=== PATIENT | female | born 1965 | race Hispanic/Latino ===

== ENCOUNTER 2018-04-15 08:32 | Inpatient (IN) | payer BC, OTHER ==
[2018-04-15] VITALS (7 sets, daily range): BP systolic 118–144; BP diastolic 61–72
[~2018-04-15] VITALS: Ht 154.9 cm; Wt 87.1 kg
[~2018-04-15 08:32] MED LIST: HYDROCHLOROTHIA25 MG PO
[2018-04-15] MEDS ORDERED: KETOROLAC TROMETHAMINE 30 MG/ML VIAL IV STA (08:44)
[2018-04-15] MEDS ORDERED: DICYCLOMINE HCL 20 MG/2 ML VIAL IM ONE (08:45)
[2018-04-15] MEDS ORDERED: SODIUM CHLORIDE 0.9% 1000ML 1,000 ML IV ONE (08:45)
[2018-04-15 09:26] LABS: BASOPHILS % 0.5 % (0.0-1.0); EOSINOPHILS # (AUTO) 0.2 (0.0-0.4); EOSINOPHILS % 2.8 % (0.0-6.0); HEMATOCRIT 35.2 % (34.2-44.1); HEMOGLOBIN 11.7 g/dL (12.0-16.0); LYMPHOCYTES # (AUTO) 2.4 (1.0-3.2); MEAN CORPUSCULAR HEMOGLOBIN 29.3 pg (28-32); MEAN CORPUSCULAR HGB CONC 33.2 g/dL (31-35); MONOCYTES # (AUTO) 0.3 (0.2-0.8); MONOCYTES % 4.7 % (4.4-11.3); NEUTROPHILS # (AUTO) 3.6 (2.1-6.9); NEUTROPHILS % 55.7 % (38.7-80.0); PLATELET COUNT 220 x10e3/uL (140-360); RED CELL DISTRIBUTION WIDTH 14.1 % (11.7-14.4)
[2018-04-15 09:38] LABS: INR 1.15; PROTHROMBIN TIME 13.8 seconds (11.9-14.5)
[2018-04-15 09:39] LABS: PARTIAL THROMBOPLASTIN TIME 25.7 seconds (23.8-35.5)
[2018-04-15 09:47] LABS: ALANINE AMINOTRANSFERASE 15 IU/L (0-55); ALBUMIN 3.6 g/dL (3.5-5.0); ALBUMIN/GLOBULIN RATIO 1.1 (0.8-2.0); ALKALINE PHOSPHATASE 73 IU/L (40-150); ANION GAP 10.5 mmol/L (8-16); BLOOD UREA NITROGEN 11 mg/dL (7-26); BUN/CREATININE RATIO 16 (6-25); CALCIUM 9.1 mg/dL (8.4-10.2); CARBON DIOXIDE 23 mmol/L (22-29); CHLORIDE 109 mmol/L (98-107); CREATININE, SERUM 0.67 mg/dL (0.57-1.11); EST GLOMERULAR FILTRATION RATE > 60 ML/MIN (60-); GLUCOSE 96 mg/dL (74-118); POTASSIUM 3.5 mmol/L (3.5-5.1); SODIUM 139 mmol/L (136-145)
[2018-04-15] MEDS ORDERED: ONDANSETRON HCL INJ 2 MG/ML VIAL IV PRN (10:30)
[2018-04-15] MEDS ORDERED: SODIUM CHLORIDE 0.9% 250ML 250 ML IV ONE (10:45)
[2018-04-15 11:07] LABS: HEMATOCRIT 33.1 % (34.2-44.1); HEMOGLOBIN 10.9 g/dL (12.0-16.0)
[2018-04-15] MEDS: SODIUM CHLORIDE 0.9% 1000ML 1,000 ML IV SCH ×2 (12:00→15:48)
--- NOTE | 2018-04-15 12:32 | History and Physical ---
HISTORY OF PRESENT ILLNESS: The patient is a 52-year-old 4, para 4, who presents with history of abnormal uterine bleeding. The patient had been receiving outpatient management with both Provera as well as oral contraceptives without any decrease in her bleeding. She is status post a dilatation and curettage and polypectomy earlier this year, which had resolved her bleeding; however, she began having bleeding again about 2 to 3 weeks ago, which initially was light spotting and gradually became moderate. Bleeding became severe starting yesterday. Patient was passing large blood clots and soaking through a pad every hour. This morning, she felt weak and dizzy and presented to the emergency room. PAST SURGICAL HISTORY: Includes 3 sections as well as an umbilical hernia repair with her third section. The patient has also had a breast lumpectomy for a benign lesion. PAST MEDICAL HISTORY: Includes hypertension and hyperlipidemia. CURRENT MEDICATIONS: Includes a combo of losartan and hydrochlorothiazide as well as simvastatin and oral contraceptives. ALLERGIES: NO KNOWN DRUG ALLERGIES. SOCIAL HISTORY: Smoking, none. Alcohol, minimal. REVIEW OF SYMPTOMS CHOKE REAMER: The patient reports dizziness. No blurry vision. No syncope. CARDIAC: Patient reports palpitations. No chest pain. RESPIRATORY: Within normal limits. ENDOCRINE: Within normal limits. SKIN: Within normal limits. GI: Liver within normal limits. Kidney within normal limits. Endorses bloating and abdominal cramping. Denies nausea, vomiting, diarrhea. : As per HPI. PHYSICAL EXAMINATION VITAL SIGNS: As per electronic medical record. GENERAL: She is alert and oriented, in mild amount of distress. HEENT: Normocephalic, atraumatic. HEART: Normal rhythm. No murmur or gallop. LUNGS: Clear to auscultation. ABDOMEN: Mild diffuse tenderness to palpation. No rebound or guarding. Normal bowel sounds in all quadrants. PELVIC: Sterile speculum exam reveals a significant amount of blood within the vaginal vault as well as a soaked pad beneath the patient, one large clot passed upon introducing speculum into vagina. After swabbing multiple times with 4 x 4 pads, the patient was noted to have severe amount of bleeding coming from her cervix. Bimanual exam was performed, which showed a closed cervical os and an enlarged uterus approximately 12 weeks to 14 weeks in size, which appears fixed to the anterior abdominal wall secondary to prior scars, poor mobility. EXTREMITIES: No edema, no erythema. NEUROLOGICAL: Awake and oriented x3. LABS STUDIES: As per patient's electronic medical record. ASSESSMENT: The patient is a 52-year-old 4, para 4, with uncontrolled abnormal uterine bleeding, status post medical management as well as minimally-invasive surgical management. PLAN: Admit to inpatient. Repeat CBC. Continue IV hydration. Consent for blood transfusion. Discussed with patient further treatment alternatives including the risks, benefits, and treatment alternatives to at total abdominal hysterectomy with bilateral salpingo-oophorectomy, and the patient understands and is willing to proceed with surgery. Will bring to operating room for the above-mentioned procedure. Job#: [id number] UVALDO
[2018-04-15] MEDS ORDERED: MIDAZOLAM HCL 2 MG/2 ML VIAL ONE (12:35)
[2018-04-15] MEDS ORDERED: FENTANYL CITRATE/PF 100MCG/2 ML INJ ONE ×2 (12:35→19:21)
[2018-04-15] MEDS ORDERED: LOSARTAN-HCTZ (12:50)
[2018-04-15] MEDS ORDERED: CITALOPRAM HBR20 MG PO (12:50)
[2018-04-15] MEDS ORDERED: ROCURONIUM BROMIDE 10 MG/ML 5ML VIAL ONE (14:23)
[2018-04-15] MEDS ORDERED: LIDOCAINE HCL 2% LOCAL INJ 5 ML SDV VIAL INJ ONE (14:23)
[2018-04-15] MEDS ORDERED: DEXAMETHASONE SOD PHOS INJ 4 MG/ML VIAL ONE (14:23)
[2018-04-15] MEDS ORDERED: SEVOFLURANE INHAL SOLN 250 ML PEN BTL ONE (14:23)
[2018-04-15] MEDS ORDERED: PROPOFOL IV EMULSION 10 MG/ML 20 ML VIAL ONE (14:23)
[2018-04-15] MEDS ORDERED: ATROPINE SULFATE 1 MG/ML VIAL ONE (14:23)
[2018-04-15] MEDS ORDERED: NEOSTIGMINE 5 MG/5ML SYR ONE (14:23)
[2018-04-15] MEDS ORDERED: KETOROLAC TROMETHAMINE 30 MG/ML VIAL ONE (14:23)
[2018-04-15] MEDS ORDERED: ONDANSETRON HCL INJ 2 MG/ML VIAL ONE (14:23)
[2018-04-15 16:46] LABS: HEMATOCRIT 31.4 % (34.2-44.1); HEMOGLOBIN 10.4 g/dL (12.0-16.0)
[2018-04-15] MEDS ORDERED: DEXTROSE IV ONE (17:03)
[2018-04-15] MEDS ORDERED: CEFAZOLIN IV ONE (17:03)
[2018-04-15] MEDS ORDERED: ACETAMINOPHEN 325 MG TAB PO PRN (17:15)
[2018-04-15] MEDS ORDERED: DIPHENHYDRAMINE HCL 25 MG CAP PO PRN (17:15)
[2018-04-15] MEDS ORDERED: SIMETHICONE 80 MG CHEW PO PRN (17:15)
[2018-04-15] MEDS ORDERED: HYDROMORPHONE 2MG/ML 2 MG/ML ML ONE (19:37)
[2018-04-15] MEDS: KETOROLAC TROMETHAMINE 30 MG/ML VIAL IM PRN ×2 (20:35→22:02)
[2018-04-15] MEDS: LACTATED RINGER'S 1,000 ML IV SCH (20:43)
[2018-04-15] MEDS ORDERED: ZOLPIDEM TARTRATE 5 MG TAB PO PRN (21:00)
[2018-04-15] MEDS ORDERED: CEFAZOLIN SOD 1 GM/D5W 50ML 50 ML IV SCH (22:00)
[2018-04-15] MEDS: ESTRADIOL 0.1MG PATCH (ONCE WEEKLY) TOP SCH (22:01)
[2018-04-15] MEDS: SIMVASTATIN 20 MG TAB PO SCH (22:01)
[2018-04-15] MEDS: CEFAZOLIN SOD 1 GM VIAL IV SCH (22:02)
[2018-04-15] MEDS: HYDROMORPHONE 1MG/1ML INJ IV PRN (22:27)
[2018-04-16] VITALS (8 sets, daily range): BP systolic 106–152; BP diastolic 54–72
[2018-04-16] MEDS: LACTATED RINGER'S 1,000 ML IV SCH (01:11)
[2018-04-16] MEDS: SODIUM CHLORIDE 0.9% 1000ML 1,000 ML IV SCH ×3 (01:12→21:49)
[2018-04-16] MEDS: MORPHINE SULFATE INJ 4 MG/ML INJ IV PRN ×2 (01:55→19:15)
[2018-04-16] MEDS: HYDROMORPHONE 1MG/1ML INJ IV PRN ×3 (05:17→13:44)
[2018-04-16] MEDS: CEFAZOLIN SOD 1 GM VIAL IV SCH ×2 (05:17→14:58)
[2018-04-16 05:38] LABS: BASOPHILS % 0.1 % (0.0-1.0); HEMATOCRIT 30.6 % (34.2-44.1); HEMOGLOBIN 10.2 g/dL (12.0-16.0); LYMPHOCYTES # (AUTO) 1.1 (1.0-3.2); MEAN CORPUSCULAR HEMOGLOBIN 29.7 pg (28-32); MEAN CORPUSCULAR HGB CONC 33.3 g/dL (31-35); MONOCYTES # (AUTO) 0.6 (0.2-0.8); MONOCYTES % 4.5 % (4.4-11.3); NEUTROPHILS # (AUTO) 12.2 (2.1-6.9); NEUTROPHILS % 86.8 % (38.7-80.0); PLATELET COUNT 200 x10e3/uL (140-360); RED BLOOD COUNT 3.44 x10e6/uL (3.6-5.1); RED CELL DISTRIBUTION WIDTH 14.1 % (11.7-14.4)
[2018-04-16 06:04] LABS: ANION GAP 13.8 mmol/L (8-16); BLOOD UREA NITROGEN 7 mg/dL (7-26); BUN/CREATININE RATIO 10 (6-25); CALCIUM 8.5 mg/dL (8.4-10.2); CARBON DIOXIDE 21 mmol/L (22-29); CHLORIDE 103 mmol/L (98-107); CREATININE, SERUM 0.69 mg/dL (0.57-1.11); EST GLOMERULAR FILTRATION RATE > 60 ML/MIN (60-); GLUCOSE 130 mg/dL (74-118); POTASSIUM 3.8 mmol/L (3.5-5.1); SODIUM 134 mmol/L (136-145)
[2018-04-16] MEDS: KETOROLAC TROMETHAMINE 30 MG/ML VIAL IM PRN ×2 (08:15→17:50)
[2018-04-16] MEDS: ENOXAPARIN 30 MG/0.3 ML SYR SC SCH ×2 (08:15→17:50)
[2018-04-16] MEDS: CITALOPRAM HYDROBROMIDE 20 MG TAB PO SCH (08:15)
[2018-04-16] MEDS ORDERED: LOSARTAN POTASSIUM 100 MG TAB PO SCH (09:00)
[2018-04-16] MEDS ORDERED: HYDROCHLOROTHIAZIDE 25 MG TAB PO SCH (09:00)
[2018-04-16] MEDS: HYDROCHLOROTHIAZIDE 25 MG TAB PO SCH (09:25)
[2018-04-16] MEDS: LOSARTAN POTASSIUM 100 MG TAB PO SCH (09:25)
[2018-04-16] MEDS: PANTOPRAZOLE 40 MG 10ML VIAL IV SCH (10:10)
[2018-04-16] MEDS: ONDANSETRON HCL INJ 2 MG/ML VIAL IV PRN ×2 (13:08→20:35)
[2018-04-16] MEDS: SIMVASTATIN 20 MG TAB PO SCH (20:50)
[2018-04-17] VITALS (8 sets, daily range): BP systolic 114–129; BP diastolic 56–60
[2018-04-17] MEDS: HYDROMORPHONE 1MG/1ML INJ IV PRN (00:12)
[2018-04-17] MEDS: HYDROCHLOROTHIAZIDE 25 MG TAB PO SCH (08:20)
[2018-04-17] MEDS: CITALOPRAM HYDROBROMIDE 20 MG TAB PO SCH (08:20)
[2018-04-17] MEDS: ENOXAPARIN 30 MG/0.3 ML SYR SC SCH ×2 (08:20→17:15)
[2018-04-17] MEDS: PANTOPRAZOLE 40 MG 10ML VIAL IV SCH (08:20)
[2018-04-17] MEDS ORDERED: HYDROCODONE/APAP 5MG-325MG TAB PO PRN ×4 (08:30→08:45)
[2018-04-17] MEDS ORDERED: IBUPROFEN 200 MG TAB PO SCH (08:30)
[2018-04-17] MEDS ORDERED: PANTOPRAZOLE 40 MG 10ML VIAL IV SCH (09:00)
[2018-04-17] MEDS: LOSARTAN POTASSIUM 100 MG TAB PO SCH (09:00)
[2018-04-17] MEDS: SODIUM CHLORIDE 0.9% 1000ML 1,000 ML IV SCH (09:36)
[2018-04-17] MEDS: IBUPROFEN 400 MG TAB PO SCH ×4 (09:37→21:24)
[2018-04-17 18:11] LABS: BASOPHILS % 0.2 % (0.0-1.0); EOSINOPHILS # (AUTO) 0.1 (0.0-0.4); EOSINOPHILS % 0.9 % (0.0-6.0); HEMATOCRIT 28.7 % (34.2-44.1); HEMOGLOBIN 9.4 g/dL (12.0-16.0); LYMPHOCYTES # (AUTO) 2.6 (1.0-3.2); LYMPHOCYTES % 24.9 % (18.0-39.1); MEAN CORPUSCULAR HEMOGLOBIN 29.3 pg (28-32); MEAN CORPUSCULAR HGB CONC 32.8 g/dL (31-35); MEAN CORPUSCULAR VOLUME 89.4 fL (81-99); MONOCYTES # (AUTO) 0.6 (0.2-0.8); MONOCYTES % 5.2 % (4.4-11.3); NEUTROPHILS # (AUTO) 7.2 (2.1-6.9); NEUTROPHILS % 68.3 % (38.7-80.0); PLATELET COUNT 182 x10e3/uL (140-360); RED BLOOD COUNT 3.21 x10e6/uL (3.6-5.1); RED CELL DISTRIBUTION WIDTH 14.4 % (11.7-14.4)
[2018-04-17] MEDS ORDERED: BISACODYL 10 MG SUPP PR ONE (20:00)
[2018-04-17] MEDS: SIMVASTATIN 20 MG TAB PO SCH (21:24)
[2018-04-18 00:08] VITALS: BP 155/65
[2018-04-18] MEDS: SODIUM CHLORIDE 0.9% 1000ML 1,000 ML IV SCH ×2 (00:42→16:30)
[2018-04-18 04:00] VITALS: BP 138/65
[2018-04-18] MEDS: IBUPROFEN 400 MG TAB PO SCH ×2 (05:28→14:36)
[2018-04-18 06:20] LABS: BASOPHILS % 0.3 % (0.0-1.0); EOSINOPHILS # (AUTO) 0.2 (0.0-0.4); EOSINOPHILS % 1.6 % (0.0-6.0); HEMATOCRIT 29.8 % (34.2-44.1); HEMOGLOBIN 9.8 g/dL (12.0-16.0); LYMPHOCYTES # (AUTO) 2.7 (1.0-3.2); LYMPHOCYTES % 26.8 % (18.0-39.1); MEAN CORPUSCULAR HEMOGLOBIN 29.4 pg (28-32); MEAN CORPUSCULAR HGB CONC 32.9 g/dL (31-35); MEAN CORPUSCULAR VOLUME 89.5 fL (81-99); MONOCYTES # (AUTO) 0.6 (0.2-0.8); MONOCYTES % 5.8 % (4.4-11.3); NEUTROPHILS # (AUTO) 6.4 (2.1-6.9); NEUTROPHILS % 65.2 % (38.7-80.0); PLATELET COUNT 210 x10e3/uL (140-360); RED BLOOD COUNT 3.33 x10e6/uL (3.6-5.1); RED CELL DISTRIBUTION WIDTH 14.5 % (11.7-14.4)
[2018-04-18] MEDS: ENOXAPARIN 30 MG/0.3 ML SYR SC SCH ×2 (08:49→16:36)
[2018-04-18] MEDS: PANTOPRAZOLE 40 MG 10ML VIAL IV SCH (08:49)
[2018-04-18] MEDS: HYDROCHLOROTHIAZIDE 25 MG TAB PO SCH (08:49)
[2018-04-18] MEDS: LOSARTAN POTASSIUM 100 MG TAB PO SCH (08:49)
[2018-04-18] MEDS: CITALOPRAM HYDROBROMIDE 20 MG TAB PO SCH (08:49)
[2018-04-18 08:55] VITALS: BP 148/66
[2018-04-18 09:20] VITALS: BP 148/66
[2018-04-18 13:28] VITALS: BP 140/66
[2018-04-18] MEDS ORDERED: SIMETHICONE80 MG PO (16:27)
[2018-04-18] MEDS ORDERED: PANTOPRAZOLE SO20 MG PO (16:27)
[2018-04-18] MEDS ORDERED: FEROSUL325 MG PO (16:27)
[2018-04-18] MEDS ORDERED: COLACE100 MG PO (16:27)
[2018-04-18] MEDS ORDERED: Ibuprofen PO (16:27)
[2018-04-18] MEDS ORDERED: Hydrocodone/Apap 5MG-325MG PO (16:27)
[2018-04-18] MEDS ORDERED: ASPIR 8181 MG PO (16:33)
[2018-04-18] MEDS ORDERED: DIVIGEL1 GM EXT (16:33)
[2018-04-18 16:35] VITALS: BP 120/58
[2018-04-18] MEDS: ESTRADIOL 0.1MG PATCH (ONCE WEEKLY) TOP SCH (17:30)
--- NOTE | 2018-05-13 15:26 | Operative Report ---
DATE OF PROCEDURE: April 15, 2018 ASSISTANTS: Dr. Cami Khan and Amaury Lynn. PREOPERATIVE DIAGNOSES 1. Menorrhagia. 2. Anemia. POSTOPERATIVE DIAGNOSES 1. Menorrhagia. 2. Anemia. PROCEDURES PERFORMED: Total abdominal hysterectomy with bilateral salpingo-oophorectomy. ANESTHESIA: General. ESTIMATED BLOOD LOSS: 200 mL. COMPLICATIONS: None. FINDINGS: An approximately 10-week size, globular uterus with dense adhesions to the anterior abdominal wall. Apparently normal tubes and ovaries bilaterally. SPECIMENS: Uterus with cervix and bilateral adnexa. INDICATIONS: The patient is a 52-year-old, 4, para 4 with a history of abnormal uterine bleeding not controlled by medical management or previous hysteroscopic polypectomy and D and C. She presented to the emergency room with severe vaginal bleeding, and a decision was made to proceed with emergent hysterectomy. PROCEDURE NOTE: The risks, benefits, indications and alternatives of the procedure were reviewed with the patient, and informed consent was obtained. Under general anesthesia, the patient was examined, prepped and draped in the typical sterile fashion in the dorsal supine position. A vertical midline incision was then made, and the fascia was divided. The peritoneum was entered without difficulty. The abdomen was then explored with findings as noted above. The bowel was packed, and an O'Qaqeor-F-Bsbfvbak retractor was placed within the abdomen. We now proceeded with a total abdominal hysterectomy, starting with the round ligaments on both sides of the uterus which were clamped, coagulated and cut using the LigaSure device. The infundibulopelvic ligaments were then isolated bilaterally and clamped, coagulated and cut using the LigaSure device. The vesicouterine peritoneum was identified and entered sharply using Metzenbaum scissors. This incision was extended laterally and the bladder dissected carefully from the anterior lower uterine segment all the way to the level of the cervicovaginal junction with the use of Metzenbaum scissors. The uterine vessels on both sides of the uterus were identified, skeletonized and clamped with curved Zeppelin clamps. They were then cut and suture ligated with #0 Vicryl sutures. The cardinal ligaments on both sides of the uterus were then identified, clamped with straight Zeppelin clamps, cut and suture ligated with Vicryl sutures until I reached the level of the cervicovaginal junction. The uterosacral ligaments posteriorly were identified, clamped with curved Zeppelin clamps and suture ligated with #0 Vicryl suture. Then, with the use of Silverio scissors, the cervix was excised completely from the vaginal vault, and the specimen was sent to the pathologist. Angled sutures were placed at 3 o'clock and 9 o'clock of the vaginal vault using #0 Vicryl figure-of-8 sutures, and the anterior and posterior edges of the vaginal mucosa including the rectovaginal and vesicovaginal fascia were approximated in the midline in an interrupted fashion using multiple figure-of-8 sutures of #0 Vicryl. Hemostasis was secured completely. There was no evidence of any injury to the surrounding organs. Urine output was good and clear. Both ureters were identified and normal in peristalsis. All instruments, retractors and laparotomy sponges were then removed from the patient's abdomen and pelvis. The pelvis was copiously irrigated and cleared of all clots and debris. There was no evidence of any bleeding from the operative site. The peritoneum and fascia were then closed in a mass closure technique using a #1 looped PDS suture in a continuous fashion. The skin was closed with subcuticular reabsorbable ana lilia. A sterile dressing was placed over the incision site. The sponge, lap, needle and instrument counts were correct times 2. The patient was awakened from anesthesia and brought to the recovery room in stable condition. Job#: [id number]
== END 2018-04-18 18:55 | disposition home or self-care (01) | DRG 743 ==
LOC: ER 08:32 → OBSVTOIN 10:16 → ERHOLD 10:16 → IMCU 13:02 → MED/SURG 21:00
PROVIDERS: ADMIT Obstetrics & Gynecology Obstetrics; ATTEND Obstetrics & Gynecology Obstetrics
PROC: 0UT20ZZ Resection of Bilateral Ovaries, Open Approach (ICD-10-PCS; 2018-04-15)
PROC: 0UT70ZZ Resection of Bilateral Fallopian Tubes, Open Approach (ICD-10-PCS; 2018-04-15)
PROC: 0UT90ZZ Resection of Uterus, Open Approach (ICD-10-PCS; principal; 2018-04-15 17:14)
DX: N93.8 Other specified abnormal uterine and vaginal bleeding (principal); N94.6 Dysmenorrhea, unspecified; I10 Essential (primary) hypertension; E78.5 Hyperlipidemia, unspecified
CPT/HCPCS: 36415; 80048; 80053; 82948; 85014; 85018; 85025; 85610; 85730; 86850; 86900; 86920; 88307; 99284; J0461; J0500; J0690; J1100; J1170; J1650; J1885; J2001; J2250; J2270; J2405; J7030; J7120